=== PATIENT | female | born 1995 ===

== ENCOUNTER → 2018-06-23 17:11 | Outpatient (CLI) | payer OTHER, SELFPAY ==
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
== END ==
PROVIDERS: PCP Acupuncturist; Visit Provider Physical Medicine & Rehabilitation
DX: M54.2 Cervicalgia (principal); M54.5 Low back pain; S13.9XXA Sprain of joints and ligaments of unspecified parts of neck, initial encounter; S33.5XXA Sprain of ligaments of lumbar spine, initial encounter; M48.061 Spinal stenosis, lumbar region without neurogenic claudication
CPT/HCPCS: 72110; 72141; 72148